=== PATIENT | female | born 1965 | race Two or more races ===

== ENCOUNTER 2017-04-29 17:57 | Emergency (ER) | payer BC ==
[~2017-04-29] VITALS: Ht 157.5 cm; Wt 49.9 kg
[~2017-04-29 17:57] MED LIST: NORCO 5-325 TA1 EACH ORAL
[2017-04-29 18:06] VITALS: BP 159/78
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
[2017-04-29] MEDS ORDERED: TYLENOL EXTRA500 MG ORAL (18:59)
[2017-04-29 19:12] VITALS: BP 144/70
== END 2017-04-29 19:30 | disposition home or self-care (01) ==
LOC: EMR 19:23
DX: S00.03XA Contusion of scalp, initial encounter (principal); Y04.2XXA Assault by strike against or bumped into by another person, initial encounter; Y92.89 Other specified places as the place of occurrence of the external cause
CPT/HCPCS: 99283

== ENCOUNTER 2018-01-23 20:48 | Emergency (ER) | payer BC ==
[~2018-01-23] VITALS: Ht 157.5 cm; Wt 54.4 kg
[~2018-01-23 20:48] MED LIST changes: +TYLENOL EXTRA500 MG ORAL
[2018-01-23 21:07] VITALS: BP 185/90
--- NOTE | 2018-01-23 21:24 | Emergency Room Report ---
History of Present Illness General Chief Complaint: Sore Throat Source: Patient Present Illness HPI Is a 52-year-old female with no significant past medical history. She presents with chief complaint of foreign body sensation. Onset was about a hours ago. She said that she took an Advil pill and felt it stuck in her throat. Since then she complaining of irritation to the throat and coughing. No nausea no vomiting. No fever or chills. Also with some congestion. Worse with swallowing. No drooling. Allergies: Coded Allergies: CODEINE (Verified Allergy, Unknown, Hives, 01/23/18) Patient History Past Medical History: see triage record, old chart reviewed Past Surgical History: other Pertinent Family History: none Social History: Denies: smoking Last Menstrual Period: n/a Now: No Immunizations: other Reviewed Nursing Documentation: PMH: Agreed; PSxH: Agreed Nursing Documentation-PMH Past Medical History: No History, Except For Review of Systems Eye: Denies: eye pain, blurred vision ENT: Reports: throat pain; Denies: ear pain, nose congestion, throat swelling Respiratory: Denies: cough, shortness of breath Cardiovascular: Denies: chest pain, palpitations Gastrointestinal: Denies: abdominal pain, diarrhea, nausea, vomiting Musculoskeletal: Denies: back pain, joint pain Skin: Denies: rash Neurological: Denies: headache, numbness Endocrine: Denies: increased thirst, increased urine Hematologic/Lymphatic: Denies: easy bruising All Other Systems: negative except mentioned in HPI Physical Exam Vital Signs Date Time Temp Pulse Resp B/P (MAP) Pulse Ox O2 Delivery O2 Flow Rate FiO2 01/23/18 20:54 97.8 79 16 185/90 96 Room Air 97.9 vitals with high blood pressure Sp02 EP Interpretation: reviewed, normal General Appearance: well appearing, no apparent distress, alert Head: normocephalic, atraumatic Eyes: bilateral eye PERRL, bilateral eye EOMI ENT: hearing grossly normal, pharyngeal erythema, other - mild enlargement of uvula. Neck: full range of motion, supple, no meningismus, other - no crepitance. No stridor. Respiratory: chest non-tender, lungs clear, normal breath sounds Cardiovascular #1: regular rate, rhythm, no murmur Gastrointestinal: normal bowel sounds, non tender, no mass, no organomegaly, no bruit, non-distended Musculoskeletal: back normal, gait/station normal, normal range of motion Psychiatric: anxious Skin: warm/dry Medical Decision Making Diagnostic Impression: Primary Impression: Sore throat Additional Impression: Foreign body sensation in throat ER Course Patient with a foreign body sensation in her throat. I doubt that she had a pill stuck there. This may be an early viral illness. She's very nervous. Try reassure her. This may explain her elevation in blood pressure. She denies any blood pressure issue. She tolerated liquids without a problem. We' ll discharge home. Last Vital Signs Date Time Temp Pulse Resp B/P (MAP) Pulse Ox O2 Delivery O2 Flow Rate FiO2 01/23/18 21:07 97.9 79 16 185/90 96 Room Air 97.9 Status: improved Disposition: HOME, SELF-CARE Condition: Stable Patient Instructions: Sore Throat Additional Instructions: You probably have beginning of a viral pharyngitis. If not better, you would need to see your doctor for referral to see ear nose and throat for a scope. also have your doctor check her blood pressure. It was very elevated here. Return if symptom worsen. IRVIN FERNANDES M.D. Jan 23, 2018 21:24
[2018-01-23 21:29] VITALS: BP 183/76
[2018-01-23] MEDS ORDERED: Mylanta II UD 30ml ORAL ONE (21:30)
[2018-01-23] MEDS ORDERED: Lidocaine 2% Visc 15ml soln ORAL ONE (21:30)
[2018-01-23 21:34] VITALS: BP 183/76
== END 2018-01-23 21:50 | disposition home or self-care (01) ==
LOC: EMR 21:36
DX: J02.9 Acute pharyngitis, unspecified (principal); R09.89 Other specified symptoms and signs involving the circulatory and respiratory systems; Z88.5 Allergy status to narcotic agent
CPT/HCPCS: 99282